=== PATIENT | male | born 1965 | race Caucasian/White ===

== ENCOUNTER 2020-02-29 01:56 | Emergency (ER) | payer BC, OTHER, SELFPAY ==
[2020-02-29] VITALS (9 sets, daily range): BP systolic 121–140; BP diastolic 78–91; PULSE 51–68; RESP 14–17; TEMP 37.1; O2SAT 94–97; BMI 42.2
--- NOTE | 2020-02-29 02:07 | ECG_ITS ---
APPROVED REPORT Exam: Resting ECG HR:62 bpm ECG Measurements Heart Rate 62 AXES AZ 198 P 47 QRSd 128 QRS 63 QT 402 T 31 QTc 408 <Conclusion> Normal sinus rhythm Nonspecific intraventricular block Abnormal ECG Electronically signed by : Reji Head, 02/29/2020 15:43:12
--- NOTE | 2020-02-29 02:25 | XR_ITS ---
PROCEDURE: XR HUMERUS LT CLINICAL INDICATION: left arm pain COMPARISON: No exams were available for comparison FINDINGS: No fracture or dislocation. No lytic or blastic change. There is normal mineralization. Calcification is noted along the greater tubercle consistent with calcific tendinitis of the shoulder. Intravenous catheter noted in the antecubital region Other findings:None. IMPRESSION: Calcific tendinitis of the left shoulder Dictated by: Jeremy Toribio MD 02/29/2020 07:43 Electronically signed by Jeremy Toribio MD in [place] 02/29/2020 07:43
--- NOTE | 2020-02-29 02:25 | XR_ITS ---
PROCEDURE: XR CHEST 2V CLINICAL HISTORY: left arm pain Chest pain COMPARISON: No exams were available for comparison FINDINGS: Mild cardiomegaly without failure. Patchy density right perihilar region. Vague increased density is present in the right midlung laterally may be due to fissural thickening or even fluid in the fissure. No acute bony abnormalities. IMPRESSION: Cardiomegaly with right perihilar infiltrate and fissural thickening on the right Dictated by: Jeremy Toribio MD 02/29/2020 07:42 Electronically signed by Jeremy Toribio MD in [place] 02/29/2020 07:42
[2020-02-29 02:40] LABS: Basophils # 0.1 K/mm3 (0-0.2); Basophils % 0.8 % (0.1-2.0); Eosinophils # 0.2 K/mm3 (0.0-0.4); Eosinophils % 2.7 % (0.1-12.0); Hematocrit 40.7 % (42.0-52.0); Hemoglobin 14.1 g/dL (14.1-18.0); Lymphocytes % 30.4 % (10-50); Mean Corpuscular HGB Conc 34.6 g/dL (31.8-35.4); Mean Corpuscular Hemoglobin 30.5 pg (27.0-31.2); Mean Corpuscular Volume 88.2 fl (80-94); Monocytes # 0.4 K/mm3 (0.1-1.0); Monocytes % 6.6 % (1.7-9.3); Neutrophils # 3.8 K/mm3 (1.8-7.8); Neutrophils % 59.5 % (37.0-80.0); Platelet Count 208 K/mm3 (142-424); Red Blood Count 4.61 M/mm3 (4.60-6.20); White Blood Count 6.4 K/mm3 (4.8-10.8)
--- NOTE | 2020-02-29 02:44 | PC.NURSE ---
Pt states he was at work and his left upper arm started hurting, it continued to hurt all the way to the hospital and quit when he got here. Pt wanted checked out even though the pain is gone now because he is overweight and he has HTN
[2020-02-29 02:48] LABS: Chloride 107 mmol/L (98-107); Potassium 3.7 mmoL/L (3.5-5.1); Sodium 140 mmol/L (136-145)
[2020-02-29 02:51] LABS: Anion Gap 9.7 mEq/L (5-15); Blood Urea Nitrogen 14 mg/dl (9-20); Calcium 9.1 mg/dl (8.4-10.2); Carbon Dioxide 27 mmol/L (22.0-30.0); Creatinine Clearance Estimated 97 mL/min (50-200); Estimated Glomerular Filt Rate 78 ml/min (>60); GFR (African American) 95 ML/MIN (>60); Glucose 110 mg/dl (74-100)
[2020-02-29 02:56] LABS: C-Reactive Protein 3.9 mg/L (0-4)
[2020-02-29 03:03] LABS: Troponin I < 0.01 ng/ml (0.00-0.034)
--- NOTE | 2020-02-29 03:11 | [facility].EDCP ---
ED Disposition Clinical Impression: Upper extremity pain Qualifiers: Laterality: left Qualified Code(s): M79.602 - Pain in left arm Disposition: Home, Self-Care Condition on Discharge: Good Instructions: DI for Acute Pain -- Adult Additional Instructions: see pcp for follow up Referrals: Provider,Katt, [Primary Care Provider] - - Critical Care Critical Care Time: No Attestation: On 02/29/20, the high probability of a clinically significant, sudden or life threatening deterioration of the following system(s) required my full and direct attention, intervention and personal management. The time I documented below is in addition to time spent performing reported procedures but includes the following listed in this critical care notation. Medical Decision Making - Medical Records Medical records reviewed: Yes: I reviewed the patient's medical records. - [place] Inquiry Pt receiving controlled substance: No Vital Signs: 02/29/20 02:13 02/29/20 03:12 02/29/20 04:14 Temperature 98.8 F Temperature Source Oral Pulse Rate [Right] 63 57 L 56 L Respiratory Rate 16 16 14 Blood Pressure [Right Arm] 140/91 H 124/82 127/79 Blood Pressure Mean [Right Arm] 107 96 95 Blood Pressure Source [Right Arm] Automatic Cuff Blood Pressure Position [Right Arm] Supine 02 Sat by Pulse Oximetry 97 96 95 Oxygen Delivery Method Room Air Room Air Room Air 02/29/20 04:30 02/29/20 05:00 02/29/20 05:30 Temperature Temperature Source Pulse Rate [Right] 68 56 L 51 L Respiratory Rate 16 17 16 Blood Pressure [Right Arm] 127/81 121/79 121/78 Blood Pressure Mean [Right Arm] 96 93 92 Blood Pressure Source [Right Arm] Automatic Cuff Automatic Cuff Automatic Cuff Blood Pressure Position [Right Arm] Supine Supine Supine 02 Sat by Pulse Oximetry 94 L 95 95 Oxygen Delivery Method Room Air Room Air Room Air 02/29/20 05:59 02/29/20 06:00 Temperature Temperature Source Pulse Rate [Right] 55 L 56 L Respiratory Rate 14 17 Blood Pressure [Right Arm] 129/87 129/87 Blood Pressure Mean [Right Arm] 101 101 Blood Pressure Source [Right Arm] Automatic Cuff Blood Pressure Position [Right Arm] Supine 02 Sat by Pulse Oximetry 96 96 Oxygen Delivery Method Room Air Room Air - Lab Data Lab results reviewed: Yes: I reviewed the patient's lab results. Lab Results 02/29/20 02:19: WBC 6.4, RBC 4.61, Hgb 14.1, Hct 40.7 L, MCV 88.2, MCH 30.5, MCHC 34.6, RDW 14.0, Plt Count 208, MPV 7.0 L, Neut % (Auto) 59.5, Lymph % (Auto) 30.4, [place] % (Auto) 6.6, Eos % (Auto) 2.7, Baso % (Auto) 0.8, Neut # (Auto) 3.8, Lymph # (Auto) 2.0, [place] # (Auto) 0.4, Eos # (Auto) 0.2, Baso # (Auto) 0.1, ESR 19 02/29/20 02:19: Sodium 140, Potassium 3.7, Chloride 107, Carbon Dioxide 27, Anion Gap 9.7, BUN 14, Creatinine 1.00, Estimated Creat Clear 97, Estimated GFR 78, Est GFR ( Amer) 95, Glucose 110 H, Calcium 9.1, Troponin I < 0.01, C-Reactive Protein 3.9 02/29/20 05:20: Troponin I < 0.01 Result diagrams: 02/29/20 02:19 02/29/20 02:19 Orders (Tests/Meds): ED MEDICATIONS Generic Name Dose Route Start Last Admin Trade Name Freq PRN Reason Stop Dose Admin Sodium Chloride 1,000 mls @ 999 mls/hr 02/29/20 02:30 02/29/20 02:47 Sod Chlor 0.9% 1000ml Bag IV 02/29/20 03:30 999 mls/hr .Q1H1M YOU Administration Discontinued Medications Generic Name Dose Route Start Last Admin Trade Name Freq PRN Reason Stop Dose Admin Ketorolac Tromethamine 30 mg 02/29/20 02:25 02/29/20 02:46 Toradol 30mg/Ml Vial IV 02/29/20 02:26 30 mg ONCE ONE Administration ORDERS Category Date Time Status XR chest 2V Stat Exams 02/29/20 02:25 Taken XR humerus LT Stat Exams 02/29/20 02:25 Taken Troponin I Q3H Lab 02/29/20 08:30 Ordered - Radiology Data #1 Image(s): Chest Image Reviewed: Yes I reviewed the patient's radiology image Preliminary Findings: Normal/NAD (cm) - ECG Data Tracing #1 Normal Sinus Rhythm: Yes
[2020-02-29 03:23] LABS: Erythrocyte Sedimentation Rate 19 mm/hr (0-20)
[2020-02-29 06:06] LABS: Troponin I < 0.01 ng/ml (0.00-0.034)
== END 2020-02-29 06:33 | disposition home or self-care (01) ==
PROVIDERS: Emergency Provider Emergency Medicine
DX: M79.602 Pain in left arm (principal); I10 Essential (primary) hypertension; Z82.49 Family history of ischemic heart disease and other diseases of the circulatory system
CPT/HCPCS: 71046; 73060; 80048; 84484; 85025; 85651; 86140; 93005; 96365; 96375; 99284

== ENCOUNTER → 2020-04-06 09:29 | Outpatient (CLI) | payer BC, OTHER, SELFPAY ==
[2020-04-06 09:52] LABS: Basophils % 0.6 % (0.1-2.0); Eosinophils # 0.1 K/mm3 (0.0-0.4); Eosinophils % 2.2 % (0.1-12.0); Hematocrit 40.3 % (42.0-52.0); Hemoglobin 14.2 g/dL (14.1-18.0); Lymphocytes # 1.5 K/mm3 (0.7-4.5); Lymphocytes % 29.6 % (10-50); Mean Corpuscular HGB Conc 35.2 g/dL (31.8-35.4); Mean Corpuscular Hemoglobin 30.1 pg (27.0-31.2); Mean Corpuscular Volume 85.5 fl (80-94); Mean Platelet Volume 7.6 fl (7.4-10.4); Monocytes # 0.3 K/mm3 (0.1-1.0); Monocytes % 6.2 % (1.7-9.3); Neutrophils # 3.1 K/mm3 (1.8-7.8); Neutrophils % 61.4 % (37.0-80.0); Platelet Count 194 K/mm3 (142-424); Red Blood Count 4.71 M/mm3 (4.60-6.20); Red Cell Distribution Width 13.3 % (11.5-17.5)
[2020-04-06 10:24] LABS: Alanine Aminotransferase 30 U/L (12-78); Albumin Level 4.8 g/dl (3.5-5.0); Albumin/Globulin Ratio 1.6 (1.1-1.8); Alkaline Phosphatase 47 U/L (38-126); Anion Gap 14.3 mEq/L (5-15); Aspartate Amino Transferase 28 U/L (17-59); Bilirubin,Total 0.7 mg/dl (0.2-1.3); Blood Urea Nitrogen 24 mg/dl (9-20); Calcium 9.2 mg/dl (8.4-10.2); Carbon Dioxide 25 mmol/L (22.0-30.0); Chloride 103 mmol/L (98-107); Chol/HDL Ratio 4.4 (1-3.5); Cholesterol 158 mg/dl (140-200); Estimated Glomerular Filt Rate 78 ml/min (>60); GFR (African American) 95 ML/MIN (>60); Glucose 93 mg/dl (74-100); HDL Cholesterol 36 mg/dl (40-60); Potassium 4.3 mmoL/L (3.5-5.1); Sodium 138 mmol/L (136-145); Total Protein,Serum 7.8 g/dl (6.3-8.2); Triglycerides 111 mg/dl (30-150); Uric Acid 9.6 mg/dl (3.5-8.5); VLDL Cholesterol 22 mg/dL (0-40)
[2020-04-06 10:35] LABS: Direct LDL Cholesterol 98.25 mg/dL (100-129)
[2020-04-06 11:39] LABS: Thyroid Stimulating Hormone 0.32 uIU/mL (0.465-4.68)
[2020-04-10 01:46] LABS: Testosterone, Total, LC/MS 166.6 ng/dL (264.0-916.0); Testosterone,Free 5.7 pg/mL (7.2-24.0)
== END ==
PROVIDERS: Visit Provider Family Medicine
DX: M10.9 Gout, unspecified (principal)
CPT/HCPCS: 36415; 80053; 80061; 84402; 84403; 84443; 84550; 85025

== ENCOUNTER → 2021-09-04 13:09 | Outpatient (CLI) | payer BC, OTHER, SELFPAY | PROVIDERS: Visit Provider Nurse Practitioner | DX: U07.1 COVID-19 (principal) | CPT/HCPCS: C9803; U0003; U0005 ==

== ENCOUNTER 2023-06-01 12:38 | Emergency (ER) | payer BC, OTHER, SELFPAY ==
[2023-06-01 12:45] VITALS: BMI 36.3
[2023-06-01 13:00] VITALS: BP 148/80; PULSE 71; RESP 19; TEMP 36.8; O2SAT 98; BMI 36.3
--- NOTE | 2023-06-01 13:23 | EXP.UTC ---
Discharge Plan Disposition Patient Disposition: Home, Self-Care Condition: Good Prescriptions Prescriptions: New amoxicillin-pot clavulanate 875-125 mg Tablet 1 tab PO Q12H 7 Days Qty: 14 0RF bacitracin 500 unit/gram ointment 1 applic topical TID 10 Days Qty: 30 0RF Rx Instructions: apply to wound as directed No Action lisinopril 40 MG tablet 40 mg PO DAILY colchicine (gout) 0.6 mg tablet 0.6 mg PO BID Patient Comments: TAKE 1 TABLET BY MOUTH TWICE DAILY Referrals Follow up/Referrals: Provider,Referral, MD [Primary Care Provider] - See instructions Activity Restrictions/Add. Instructions Additional Instructions/Restrictions: Clean wound 2-3 times daily with antibacterial soap and water Apply topical antibitoic as prescribed Take oral antibiotics as prescribed Follow up with your Family Doctor if no improvement or any worsening symptoms Clinical Impressions Clinical Impression: Puncture wound Instructions Patient Instructions: DI for Puncture Wound, Amoxicillin and Clavulanic Acid Discharge ED Provider: Janet Chou [facility] [place] HPI General Stated complaint: AO10/1@home, nail lodged in Rt hand Mode of Arrival: Ambulatory Source of Information: Patient Limitations: No Limitations Time Seen by Provider: 06/01/23 13:23 Description of Symptoms (Recalled from Triage Doc. by RN): PATIENT C/O PUNCTURE WOUND FROM NAIL TO RIGHT PALM THIS MORNING. TDAP NEED HEENT Symptoms (Recalled from RN notes): No Resp Symptoms (Recalled from RN notes): No Skin Symptoms (Recalled from RN notes): Yes MS Symptoms (Recalled from RN notes): No Functional Status (Recalled from RN notes): WNL History of Present Illness Provider Complaint: Patient states that he went to smack a loose board on the chicken coop this morning and there was nailhead sticking out and went into the palm of his right hand States that he came in to get a Tetanus shot and see if he may need some antibitoics Related Data Home Medications Medication Instructions Recorded Confirmed lisinopril 40 mg tablet 40 mg PO DAILY Hypertension 02/29/20 06/01/23 colchicine (gout) 0.6 mg tablet 0.6 mg PO BID GOUT 06/01/23 06/01/23 Previous Rx's Medication Instructions Recorded amoxicillin 875 mg-potassium 1 tab PO Q12H 7 days #14 tabs 06/01/23 clavulanate 125 mg tablet bacitracin 500 unit/gram topical 1 applic topical TID 10 days #30 06/01/23 ointment grams Allergies Allergy/AdvReac Type Severity Reaction Status Date / Time allopurinol [ALLOPURINOL] Allergy Mild Verified 04/10/21 11:21 Worker's Comp Is this a Worker's Comp case?: No [facility] Disclaimer: The information contained in this section may have been updated after the patient was seen, as this information can be updated by other users. Medical History (Updated 06/01/23 @ 13:37 by Janet Chou APRN) Gout Hypertension Surgical History History of tonsillectomy Social History Smoking Status: Unknown if ever smoked alcohol intake: current substance use type: marijuana current occupational status: employed Travel in the last 8 weeks: None ROS Obtained: Yes All systems reviewed & no additional complaints except as documented and Yes Systems reviewed as appropriate & no additional complaints except as documented Constitutional Constitutional: Reports system reviewed and no additional complaints, except as documented and Reports as per HPI Cardiovascular Cardiovascular: Reports system reviewed and no additional complaints, except as documented and Reports as per HPI Respiratory Respiratory: Reports system reviewed and no additional complaints, except as documented and Reports as per HPI Gastrointestinal Gastrointestingal: Reports system reviewed and no additional complaints, except as documented and as per HPI Musculoskeletal Musculoskeletal: Reports system reviewed and no additional com
[2023-06-01 13:40] VITALS: BP 148/80; PULSE 71; RESP 19; TEMP 36.8; O2SAT 98
== END 2023-06-01 13:44 | disposition home or self-care (01) ==
PROVIDERS: Emergency Provider Nurse Practitioner
DX: S61.431A Puncture wound without foreign body of right hand, initial encounter (principal); M10.9 Gout, unspecified; I10 Essential (primary) hypertension; W45.0XXA Nail entering through skin, initial encounter
CPT/HCPCS: 90715; 96372; 99204; 99212; 99214; G0463